=== PATIENT | female | born 1945 | race Caucasian/White ===

== ENCOUNTER → 2016-04-11 | Outpatient (CLI) | payer OTHER, MEDICARE ==
[~2016-04-11] MED LIST: ASPCH81X PO; ASPI-435 PO; ATOR-26 PO; AZIT250T PO; CHOL100027 PO; DULO60CA44 PO; FLNIN/ NAE; HYDR25TA4 PO; HYDR5SYP11 PO; INSDGIPEN SC; INSU100I2 SC; INSU100I2 SQ; INSUINJ4 SC; LEVO75TA5 PO; LOSA25TA18 PO; LPT/40 PO; MDRDP21 PO; MISCCAP80 PO; NRN100 PO; PHEN37.5 PO; VNTHFA/IN INH; VTMB122500 PO
== END | disposition home or self-care (01) ==
LOC: C.LABMFLN 10:20
PROVIDERS: ATTEND Family Medicine
DX: E87.6 Hypokalemia (principal)

== ENCOUNTER → 2016-05-23 | Outpatient (CLI) | payer OTHER, MEDICARE ==
--- NOTE | 2016-05-23 16:06 | MAMMOGRAPHY REPORT ---
BILATERAL DIGITAL SCREENING MAMMOGRAM TOMOSYNTHESIS WITH CAD: 05/23/2016 CLINICAL HISTORY: Routine screening examination. TECHNIQUE: Breast tomosynthesis in addition to standard 2D mammography was performed. Current study was also evaluated with a Computer Aided Detection (CAD) system. COMPARISON: Comparison is made to exams dated: 05/19/2015 mammogram, 06/16/2010 mammogram, 02/17/2014 mammogram, 02/17/2014 stereotactic biopsy - [facility], 01/27/2014 mammogram - [facility], and 06/12/2009 mammogram - [facility]. BREAST COMPOSITION: There are scattered areas of fibroglandular density in both breasts. FINDINGS: There are vascular calcifications and bilateral groupings of coarse heterogeneous microca lcifications, stable in each breast. There is a stable metallic biopsy marker near the biopsied clu ster of calcifications in the 6:00 right breast. No new suspicious mass, architectural distortion o r cluster of microcalcifications is seen. IMPRESSION: ACR BI-RADS CATEGORY 1: NEGATIVE There is no mammographic evidence of malignancy. A 1 year screening mammogram is recommended. The p atient will receive written notification of the results. Approximately 10% of breast cancers are not detected with mammography. A negative mammographic repor t should not delay biopsy if a clinically suggestive mass is present. Jane Ludwig M.D. ay/:05/23/2016 15:42:17 Shuttle Hand: Mariya Hilario RT(R)(Roddy), [facility] letter sent: Normal 1/2 BI-RADS Code: ACR BI-RADS Category 1: Negative
== END | disposition home or self-care (01) ==
LOC: C.MAMM 13:10
PROVIDERS: ATTEND Family Medicine
DX: Z12.31 Encounter for screening mammogram for malignant neoplasm of breast (principal)

== ENCOUNTER → 2016-05-23 | Outpatient (CLI) | payer OTHER, MEDICARE ==
[2016-05-23 13:24] LABS: ALT/SGPT 58 U/L (12-78); AST/SGOT 38 U/L (15-37); BLOOD UREA NITROGEN 19 mg/dl (7-18); BUN/CREATININE RATIO 22.3 (10-20); CALCIUM 8.8 mg/dl (8.5-10.1); CARBON DIOXIDE 30 mmol/L (21-32); CHLORIDE 103 mmol/L (98-107); CHOLESTEROL 128 mg/dl (0-200); CREATININE 0.87 mg/dl (0.60-1.20); GLUCOSE 198 mg/dl (70-99); SODIUM 141 mmol/L (136-145); TRIGLYCERIDES 75 mg/dl (0-150); VERY LOW DENSITY LIPOPROT CALC 15 mg/dl
[2016-05-23 13:34] LABS: ALB/GLOB RATIO 0.9 (0.9-2); ALKALINE PHOSPHATASE 89 U/L (45-117); CHOLESTEROL/HDL RATIO 2.2; HDL CHOLESTEROL 58 mg/dl
[2016-05-23 13:49] LABS: ESTIMATED AVERAGE GLUCOSE 206 mg/dl; HA1C FLAG Normal (Normal)
[2016-05-23 13:58] LABS: RATIO 38.6 mcg/mg (0-30.0)
== END | disposition home or self-care (01) ==
LOC: C.LABMFLN 10:41
PROVIDERS: ATTEND Family Medicine
DX: E87.6 Hypokalemia (principal); E78.5 Hyperlipidemia, unspecified; E03.9 Hypothyroidism, unspecified; E66.9 Obesity, unspecified; E06.3 Autoimmune thyroiditis; I10 Essential (primary) hypertension; R20.8 Other disturbances of skin sensation; F41.8 Other specified anxiety disorders; E11.42 Type 2 diabetes mellitus with diabetic polyneuropathy; E20.0 Idiopathic hypoparathyroidism; Z12.31 Encounter for screening mammogram for malignant neoplasm of breast

== ENCOUNTER 2016-08-23 04:00 | Emergency (ER) | payer OTHER, MEDICARE ==
[~2016-08-23] VITALS: Ht 162.6 cm; Wt 91.3 kg
[~2016-08-23 04:00] MED LIST changes: -ASPI-435 PO; -ATOR-26 PO; -AZIT250T PO; -FLNIN/ NAE; -HYDR5SYP11 PO; -INSDGIPEN SC; -INSU100I2 SQ; -MISCCAP80 PO; -NRN100 PO; -VNTHFA/IN INH
[2016-08-23 04:05] VITALS: TEMP 36.5; Ht 162.6 cm; Wt 91.3 kg
[2016-08-23] MEDS ORDERED: ALBUT/IPRATROP 3MG/0.5MG NEB 3 ML VIAL INH STA (04:18)
[2016-08-23] MEDS ORDERED: FLNIN/ NAE (04:33)
[2016-08-23] MEDS ORDERED: NRN100 PO (04:33)
[2016-08-23] MEDS ORDERED: ATOR-26 PO (04:33)
[2016-08-23] MEDS ORDERED: ASPI-435 PO (04:34)
[2016-08-23] MEDS ORDERED: INSDGIPEN SC (04:35)
[2016-08-23] MEDS ORDERED: MISCCAP80 PO (04:35)
[2016-08-23] MEDS ORDERED: INSU100I2 SQ (04:36)
[2016-08-23] MEDS ORDERED: VNTHFA/IN INH (04:37)
[2016-08-23 04:48] VITALS: O2SAT 94
[2016-08-23 04:50] LABS: BASO % 0.3 %; BASO ABS # 0.03 K/uL (0-0.2); COMPLETE YES; EOS % 1.3 %; HEMATOCRIT 43.2 % (37-47); IG% 0.3 %; LYMPH % 23.9 %; LYMPH ABS # 2.26 K/uL (1.2-3.4); MEAN CELL VOLUME 87.3 fL (80-100); MEAN CORPUSCULAR HEMOGLOBIN 30.3 pg (25-34); MEAN CORPUSCULAR HGB CONC 34.7 g/dl (32-36); MEAN PLATELET VOLUME 10.2 fL (7.4-10.4); MONO % 7.1 %; NEUT % 67.1 %; PLATELET COUNT 326 K/uL (130-400); RED BLOOD COUNT 4.95 M/uL (4.2-5.4); WHITE BLOOD COUNT 9.47 K/uL (4.8-10.8)
[2016-08-23 04:58] LABS: POINT OF CARE PRO-BNP 24 pg/ml (0-900); POINT OF CARE TROPONIN I < 0.030 ng/ml (0-0.045)
[2016-08-23 05:09] LABS: ALT/SGPT 39 U/L (12-78); AST/SGOT 19 U/L (15-37); BLOOD UREA NITROGEN 20 mg/dl (7-18); CARBON DIOXIDE 30 mmol/L (21-32); CHLORIDE 101 mmol/L (98-107); CREATININE 0.78 mg/dl (0.60-1.20); GLUCOSE 239 mg/dl (70-99); POTASSIUM 3.6 mmol/L (3.5-5.1); SODIUM 138 mmol/L (136-145)
[2016-08-23 05:14] LABS: ALKALINE PHOSPHATASE 99 U/L (45-117)
[2016-08-23] MEDS ORDERED: AZITHROMYCIN 250 MG TAB PO STA (05:56)
--- NOTE | 2016-08-23 05:58 | EMERGENCY ROOM VISIT NOTE ---
History First contact with patient: 04:08 Chief Complaint: CONGESTION Stated Complaint: CHEST CONGESTION,COUGHING/CHOKING History of Present Illness The patient is a 71 year old female who presents to the Emergency Room with complaints of cough, congestion, chest pain with coughing, subjective fever and chills for the past week that is steadily getting worse. Patient went to urgent care was placed on a Medrol Dosepak. No x-ray was done. Patient states visualize down the coughing is worse and harder to breathe. No history of congestive heart failure. No prior heart disease. Patient denies prolonged chest pain, abdominal pain, headache, neck stiffness, earache, leg pain or swelling, vomiting, diarrhea. She is tolerated by mouth fluids and food. Review of Systems See HPI for pertinent positives & negatives. A total of 10 systems reviewed and were otherwise negative. Past Medical/Surgical History Diabetes, hyperlipidemia, vitamin D deficiency, hypertension, hypertensive, hysterectomy, kidney stones, tonsillectomy Social History Smoking Status: Never Smoker Smokeless Tobacco Use: No Alcohol Use: none Drug Use: none Marital Status: Housing Status: lives with family Current/Historical Medications Scheduled Aspirin (Aspirin 81), 81 MG PO DAILY Atorvastatin (Lipitor), 80 MG PO DAILY Cholecalciferol (Vitamin D 1000 Unit), 1,000 INTER.UNIT PO QAM Cyanocobalamin (Vitamin B-12), 2,500 MCG PO QAM Duloxetine Hcl (Cymbalta), 60 MG PO BID Gabapentin (Gabapentin), 100 MG PO TID Hydrochlorothiazide (Hctz), 25 MG PO QAM Insulin Glargine (Lantus Solostar), 70 UNITS SC QPM Insulin Lispro (Human) (Humalog Kwikpen), SQ AC Levothyroxine Sodium (Levothyroxine Sodium), 75 MCG PO QPM Losartan Potassium (Cozaar), 25 MG PO QAM Methylprednisolone (Methylprednisolone Dose P), PO UD Probiotic Product (Probiotic), 1 CAP PO AMPM Scheduled PRN Albuterol Hfa (Ventolin Hfa), 2 PUFFS INH Q4 PRN for Wheezing Fluticasone Propionate (Fluticasone Propionate), 2 SPRAYS KATRINA DAILY PRN for ALLERGIES Allergies Coded Allergies: Lisinopril (Verified Allergy, Unknown, COUGHING, 08/23/16) Metformin (Verified Allergy, Unknown, DIARRHEA, 08/23/16) Venlafaxine (Verified Allergy, Unknown, UNKNOWN, 08/23/16) Physical Exam Vital Signs Date Time Temp Pulse Resp B/P (MAP) Pulse Ox O2 Delivery O2 Flow Rate FiO2 08/23/16 05:14 61 20 143/84 95 Nasal Cannula 2.0 08/23/16 05:00 89 Room Air 08/23/16 04:48 94 Room Air 08/23/16 04:05 36.5 71 20 148/90 94 Physical Exam VITALS: Vitals are noted on the nurse's note and reviewed by myself. Vital signs mildly hypertensive GENERAL: Pleasant elderly female, in no acute distress, nondiaphoretic, well- developed well-nourished. SKIN: The skin was without rashes, erythema, edema, or bruising. There is no tenting of the skin. Capillary reflex less than 2 seconds. HEAD: Normocephalic atraumatic. EARS: External auditory canals clear, tympanic membranes pearly soto without erythema or effusion bilaterally. EYES: Pupils equal round and reactive to light and accommodation. Conjunctivae without injection, sclerae without icterus. Extraocular movements intact. NOSE: Patent, turbinates without inflammation or discharge. MOUTH: Mucous membranes moist. Pharynx without erythema or exudate. Uvula midline. Airway patent. Tongue does not deviate. NECK: Supple without nuchal rigidity. No lymphadenopathy. No thyromegaly. Cervical spine is nontender. No JVD. No meningeal signs HEART: Regular rate and rhythm LUNGS: Mild diffuse end expiratory wheezes, without rales or rhonchi. No dullness to percussion. No retractions or accessory muscle use. ABDOMEN: Positive bowel sounds x 4. Normal tympanic percussion. Soft, nontender, without masses or organomegaly. Vilchis sign negative. No guarding or rebound tenderness. MUSCULOSKELETAL: No muscle atrophy, erythema, or edema noted. NEURO: Patient was alert and oriented to person place and time. Normal sensation to light and sharp touch. No focal neurological deficits. Medical Decision & Procedures Laboratory Results 08/23/16 04:33 Red Blood Count 4.95, Mean Corpuscular Volume 87.3, Mean Corpuscular Hemoglobin 30.3, Mean Corpuscular Hemoglobin Concent 34.7, Mean Platelet Volume 10.2, Neutrophils (%) (Auto) 67.1, Lymphocytes (%) (Auto) 23.9, Monocytes (%) (Auto) 7.1, Eosinophils (%) (Auto) 1.3, Basophils (%) (Auto) 0.3, Neutrophils # (Auto) 6.36, Lymphocytes # (Auto) 2.26, Monocytes # (Auto) 0.67, Eosinophils # (Auto) 0.12, Basophils # (Auto) 0.03 08/23/16 04:33 Test 08/23/16 04:33 08/23/16 04:38 08/23/16 04:50 White Blood Count 9.47 K/uL (4.8-10.8) Red Blood Count 4.95 M/uL (4.2-5.4) Hemoglobin 15.0 g/dL (12.0-16.0) Hematocrit 43.2 % (37-47) Mean Corpuscular Volume 87.3 fL (80-100) Mean Corpuscular Hemoglobin 30.3 pg (25-34) Mean Corpuscular Hemoglobin Concent 34.7 g/dl (32-36) Platelet Count 326 K/uL (130-400) Mean Platelet Volume 10.2 fL (7.4-10.4) Neutrophils (%) (Auto) 67.1 % Lymphocytes (%) (Auto) 23.9 % Monocytes (%) (Auto) 7.1 % Eosinophils (%) (Auto) 1.3 % Basophils (%) (Auto) 0.3 % Neutrophils # (Auto) 6.36 K/uL (1.4-6.5) Lymphocytes # (Auto) 2.26 K/uL (1.2-3.4) Monocytes # (Auto) 0.67 K/uL (0.11-0.59) Eosinophils # (Auto) 0.12 K/uL (0-0.5) Basophils # (Auto) 0.03 K/uL (0-0.2) RDW Standard Deviation 40.4 fL (36.4-46.3) RDW Coefficient of Variation 12.6 % (11.5-14.5) Immature Granulocyte % (Auto) 0.3 % Immature Granulocyte # (Auto) 0.03 K/uL (0.00-0.02) D-Dimer 220 ug/L FEU (0-500) Anion Gap 7.0 mmol/L (3-11) Est Creatinine Clear Calc Drug Dose 71.4 ml/min Estimated GFR () 88.0 Estimated GFR (Non- 76.0 BUN/Creatinine Ratio 25.0 (10-20) Total Bilirubin 0.9 mg/dl (0.2-1) Aspartate Amino Transf (AST/SGOT) 19 U/L (15-37) Alanine Aminotransferase (ALT/SGPT) 39 U/L (12-78) Alkaline Phosphatase 99 U/L (45-117) Troponin I < 0.015 ng/ml (0-0.045) Total Protein 7.5 gm/dl (6.4-8.2) Albumin 3.8 gm/dl (3.4-5.0) Globulin 3.7 gm/dl (2.5-4.0) Albumin/Globulin Ratio 1.0 (0.9-2) Bedside Troponin I < 0.030 ng/ml (0-0.045) HW-Biy-A-Type Natriuretic Peptide 24 pg/ml (0-900) Bedside Lactic Acid Venous 1.37 mmol/L (0.90-1.70) Medications Administered Medications (Trade) Dose Ordered Sig/Ryan Route Start Time Stop Time Status Last Admin Dose Admin Albuterol/ Ipratropium (Duoneb) 3 ml NOW STAT INH 08/23/16 04:18 08/23/16 04:20 DC 08/23/16 04:52 3 ML ED Course Prior records/ancillary studies reviewed. Triage Nursing notes reviewed. Additional history obtained from the family. The patient's history was concerning for respiratory difficulties. Differential diagnosis: Etiologies such as infections, reactive airway disease, pneumonia, pneumothorax , COPD, CHF, cardiac ischemia, pulmonary embolism, musculoskeletal, gastrointestinal, as well as others were entertained. Physical examination: As above. ER treatment provided: Nebulizer On reassessment the patient felt better. Diagnostic interpretation by me: The electrocardiogram was normal sinus, normal intervals, left axis deviation, no acute ST-T wave changes. Impression normal sinus rhythm interpreted by myself The labs revealed a negative troponin. Negative BNP. No leukocytosis. Negative d-dimer Imaging studies: Chest x-ray with no acute consolidation, pneumothorax or free air per my interpretation . This appears to be consistent with bronchitis with wheezing. Patient was neurovascularly and neurologically intact. She is well-appearing. She was tolerating fluids. Stable vital signs. Patient did desat shortly after nebulizer but came back to normal pulse ox. By the evaluation outlined above emergent etiologies such as CHF, cardiac ischemia, pulmonary embolism, reactive airway disease, pneumonia, pneumothorax, musculoskeletal, serious bacterial infections, as well as others were deemed relatively unlikely. The pt informed about the findings as listed above. All questions were answered and pleased with the treatment. Return instructions were outlined and the patient was discharged in stable condition. Outpatient prescription management: Zithromax Referral: The patient was referred back to their primary care physician for follow-up in 2 to 3 days for a recheck of the current condition. Case reviewed with my attending. Medical Decision As above Patient was found to have elevated blood pressure and was referred to their family doctor for recheck and further treatment. I attest that I have personally reviewed the patient's medications. Impression Primary Impression: Acute bronchitis Departure Information Dispostion Home / Self-Care Condition GOOD Referrals Kenan Sinclair M.D. (PCP) Patient Instructions My [facility] Additional Instructions DO NOT drive, drink alcohol, operate machinery, or perform dangerous activities today. You were given medications in the ER that can affect your ability to safely function or operate a vehicle. Azithromycin(Zithromax) 250mg: Take one a day for 4 additional days. All antibiotics can cause diarrhea. If this occurs and you feel worse or it does not resolve in 1-2 days follow up with your doctor or return to the Emergency Department as this could be signs of serious underlying problems. Any medication can cause an allergic reaction, stop the pills immediately and return to the ER for rash, hives, breathing difficulties, or swelling. Albuterol Inhaler: Take 2 puffs four times daily for seven days, then as needed. Acetaminophen(Tylenol) may be used for fever or pain. Use 1000mg every six hours as needed. Avoid using more than 3000mg in a 24 hour period. AND/OR Ibuprofen(Motrin, Advil) may be used for fever or pain. Use 600mg every six hours as needed. Take with food. Avoid using more than 2400mg in a 24 hour period. Do not use 2400mg per day for more than three consecutive days without physician direction. Prolonged inappropriate use can lead to stomach upset or ulcers. Hycodan cough syrup: use one teaspoon every six hours only as needed for severe cough. It is best for use at night since it will cause sedation. This is a narcotic medication. Avoid alcohol, operating machinery or dangerous equipment, working on ladders or roofs, DRIVING, or situations where being under the influence may be dangerous. It is recommended to use an over-the- counter stool softener such as Colace, 100mg twice daily while taking this medication to avoid constipation. Controlling your fever with Tylenol and Ibuprofen as above will make you feel better. Rest and drink plenty of fluids. Avoid strenuous activity until your symptoms resolve and your breathing returns to normal. Continue current medications. Return to the ER for chest pain, difficulty breathing, persistent fevers, vomiting, worsening of your condition, or as needed. Follow-up with family care in 2-3 days. Problem Qualifiers Primary Impression: Acute bronchitis Bronchitis organism: unspecified organism Qualified Codes: J20.9 - Acute bronchitis, unspecified
[2016-08-23] MEDS ORDERED: HYDR5SYP11 PO (05:59)
[2016-08-23] MEDS ORDERED: AZIT250T PO (05:59)
[2016-08-23] MEDS ORDERED: HYCODAN 60ML BOTTLE HOMEPACK PO ONE (06:00)
--- NOTE | 2016-08-23 06:02 | EMERGENCY ROOM VISIT NOTE ---
ED Visit Note First contact with patient: 04:08 I have personally evaluated and examined this patient. I agree with assessment and plan of Yanelis Reeves PA-C.
[2016-08-23 06:15] VITALS: BP 143/84; PULSE 61; O2SAT 95
--- NOTE | 2016-08-23 07:46 | DIAGNOSTIC IMAGING REPORT ---
TWO VIEW CHEST CLINICAL HISTORY: Cough. FINDINGS: PA and lateral chest radiographs are obtained. No prior studies are available for comparison at the time of dictation. The heart is mildly enlarged and there is atherosclerotic calcification of the thoracic aorta. The pulmonary vasculature is noncongested. Nonspecific interstitial thickening is noted. There is no airspace consolidation or large pleural effusion. Minimal dependent atelectasis is observed. There is no pneumothorax. The skeletal structures are osteopenic. The bony thorax appears intact. IMPRESSION: Mild cardiac enlargement with no active disease in the chest. Electronically signed by: Kenan Gonzalez M.D. 08/23/2016 7:44 AM Dictated Date/Time: 08/23/2016 7:44 AM
[2016-08-23 12:04] LABS: CALCIUM 9.2 mg/dl (8.5-10.1)
== END 2016-08-23 06:15 | disposition home or self-care (01) ==
LOC: C.EDB 04:02
DX: J20.9 Acute bronchitis, unspecified (principal); E11.9 Type 2 diabetes mellitus without complications; E78.5 Hyperlipidemia, unspecified; I10 Essential (primary) hypertension; E55.9 Vitamin D deficiency, unspecified; Z90.710 Acquired absence of both cervix and uterus; Z87.442 Personal history of urinary calculi; Z98.890 Other specified postprocedural states; Z79.82 Long term (current) use of aspirin; Z79.4 Long term (current) use of insulin; Z79.899 Other long term (current) drug therapy; Z88.8 Allergy status to other drugs, medicaments and biological substances

== ENCOUNTER → 2016-09-06 | Outpatient (CLI) | payer OTHER, MEDICARE ==
[~2016-09-06] MED LIST changes: -ASPCH81X PO; +ASPI-435 PO; +ATOR-26 PO; +AZIT250T PO; +FLNIN/ NAE; +INSDGIPEN SC; -INSU100I2 SC; +INSU100I2 SQ; -INSUINJ4 SC; -LPT/40 PO; +MISCCAP80 PO; +NRN100 PO; -PHEN37.5 PO; +VNTHFA/IN INH
== END | disposition home or self-care (01) ==
LOC: C.LABMFLN 09:04
PROVIDERS: ATTEND Family Medicine
DX: R05 Cough (principal)

== ENCOUNTER → 2016-09-13 | Outpatient (CLI) | payer OTHER, MEDICARE | END | disposition home or self-care (01) | LOC: C.LABMFLN 11:12 | PROVIDERS: ATTEND Family Medicine | DX: R06.00 Dyspnea, unspecified (principal); R05 Cough ==

== ENCOUNTER → 2016-09-22 | Outpatient (CLI) | payer OTHER, MEDICARE ==
[2016-09-22 18:21] LABS: THYROID STIMULATING HORMONE 1.48 uIu/ml (0.300-4.500)
[2016-09-26 13:51] LABS: ASPERGILLUS FLAVUS Negative (Negative); ASPERGILLUS FUMIGATUS Negative (Negative); ASPERGILLUS NIGER Negative (Negative)
[2016-09-26 21:22] LABS: BORDETELLA PERTUSSIS PT IGA 32 IU/mL
== END | disposition home or self-care (01) ==
LOC: C.LABMFLN 14:02
PROVIDERS: ATTEND Physician Assistant
DX: E07.9 Disorder of thyroid, unspecified (principal)

== ENCOUNTER → 2016-09-30 | Outpatient (CLI) | payer OTHER, MEDICARE ==
[~2016-09-30] MED LIST changes: +OPTIRAY 320 IV PRN
--- NOTE | 2016-09-30 09:06 | DIAGNOSTIC IMAGING REPORT ---
CT SCAN OF THE NECK WITH IV CONTRAST CLINICAL HISTORY: Thyroid disorder. Difficulty swallowing. COMPARISON STUDY: Thyroid ultrasound dated 06/15/2012. TECHNIQUE: Following the IV administration of 93 cc of Optiray 320, CT scan of the soft tissues of the neck was performed from the skull base to the upper chest. Images are reviewed in the axial, sagittal, and coronal planes. IV contrast was administered without complication. A dose lowering technique was utilized adhering to the principles of ALARA. CT DOSE: 414.11 mGycm FINDINGS: Pharynx: The nasopharynx, oropharynx, and laryngeal pharynx are normal in appearance. The pharyngeal airway is widely patent. There is no evidence of mass lesion. The vocal cords are symmetric. The parapharyngeal fat is well maintained. The prevertebral/retropharyngeal soft tissues are within normal limits. Lymphadenopathy: No cervical lymphadenopathy is seen Thyroid: Normal in size and attenuation. Salivary glands: The parotid and submandibular glands are within normal limits. Brain parenchyma: The visualized brain parenchyma at the skull base is normal in appearance. Vascular structures: There is mild atherosclerotic calcification of the visualized thoracic aorta. The arch demonstrates bovine variant anatomy. The carotid arteries and jugular veins are widely patent. Skeletal structures: The skeletal structures are osteopenic. Imaged portions of the calvarium at the skull base and the cervical spine appear intact. Mild multilevel cervical spondylosis is observed. No lytic or blastic lesions are seen. Sinuses and mastoids: The visualized paranasal sinuses are clear. There is evidence of previous right mastoid surgery. The left mastoid air cells are well pneumatized. Orbits: The partially visualized orbits are grossly unremarkable. Orbital contents are normal as imaged noting bilateral ocular lens implants. Lung apices: Visualized apical lung parenchyma is clear. IMPRESSION: 1. No abnormality is identified in the neck. 2. There is no mass, fluid collection, or cervical lymphadenopathy. Electronically signed by: Kenan Gonzalez M.D. 09/30/2016 9:05 AM Dictated Date/Time: 09/30/2016 9:00 AM
== END | disposition home or self-care (01) ==
LOC: C.CTS 08:40
PROVIDERS: ATTEND Physician Assistant
DX: E07.9 Disorder of thyroid, unspecified (principal)

== ENCOUNTER → 2016-12-21 | Outpatient (CLI) | payer OTHER, MEDICARE ==
[~2016-12-21] MED LIST changes: -OPTIRAY 320 IV PRN
== END | disposition home or self-care (01) ==
LOC: C.LABMFLN 12:01
PROVIDERS: ATTEND Family Medicine
DX: R30.0 Dysuria (principal)

== ENCOUNTER → 2017-01-06 | Outpatient (CLI) | payer OTHER, MEDICARE ==
[2017-01-06 13:21] LABS: ESTIMATED AVERAGE GLUCOSE 203 mg/dl; HA1C FLAG Normal (Normal)
[2017-01-06 13:37] LABS: ALT/SGPT 56 U/L (12-78); BLOOD UREA NITROGEN 17 mg/dl (7-18); BUN/CREATININE RATIO 22.6 (10-20); CALCIUM 8.8 mg/dl (8.5-10.1); CARBON DIOXIDE 30 mmol/L (21-32); CHLORIDE 107 mmol/L (98-107); CHOLESTEROL 151 mg/dl (0-200); CREATININE 0.75 mg/dl (0.60-1.20); GLUCOSE 152 mg/dl (70-99); POTASSIUM 3.9 mmol/L (3.5-5.1); SODIUM 141 mmol/L (136-145)
[2017-01-06 13:48] LABS: ALKALINE PHOSPHATASE 99 U/L (45-117); AST/SGOT 41 U/L (15-37); CHOLESTEROL/HDL RATIO 2.2; HDL CHOLESTEROL 69 mg/dl; LDL CHOLESTEROL CALCULATED 68 mg/dl; THYROID STIMULATING HORMONE 0.876 uIu/ml (0.300-4.500); TRIGLYCERIDES 70 mg/dl (0-150); VERY LOW DENSITY LIPOPROT CALC 14 mg/dl
== END | disposition home or self-care (01) ==
LOC: C.LABMFLN 08:20
PROVIDERS: ATTEND Family Medicine
DX: E03.9 Hypothyroidism, unspecified (principal); E55.9 Vitamin D deficiency, unspecified; E11.9 Type 2 diabetes mellitus without complications; E78.00 Pure hypercholesterolemia, unspecified

== ENCOUNTER → 2017-02-06 | Outpatient (CLI) | payer OTHER, MEDICARE ==
[2017-02-06 12:58] LABS: BASO ABS # 0.05 K/uL (0-0.2); COMPLETE YES; EOS % 3.8 %; HEMATOCRIT 40.8 % (37-47); IG% 0.2 %; LYMPH % 29.2 %; MEAN CELL VOLUME 90.1 fL (80-100); MEAN CORPUSCULAR HEMOGLOBIN 30.7 pg (25-34); MEAN CORPUSCULAR HGB CONC 34.1 g/dl (32-36); MEAN PLATELET VOLUME 10.6 fL (7.4-10.4); MONO % 7.9 %; NEUT % 57.9 %; PLATELET COUNT 280 K/uL (130-400); RED BLOOD COUNT 4.53 M/uL (4.2-5.4); WHITE BLOOD COUNT 4.79 K/uL (4.8-10.8)
[2017-02-06 13:03] LABS: URINE APPEARANCE CLEAR (CLEAR); URINE BILIRUBIN NEG (NEG); URINE COLOR YELLOW; URINE EPITHELIAL CELL AUTO 20-30 /lpf (0-5); URINE NITRITE POS (NEG); URINE PH 6.5 (4.5-7.5); URINE SPECIFIC GRAVITY 1.016 (1.000-1.030); UROBILINOGEN NEG (NEG)
[2017-02-06 13:09] LABS: MANUAL MICROSCOPIC REQUIRED? NO; REVIEW REQ? NO
[2017-02-06 13:36] LABS: ALT/SGPT 85 U/L (12-78); AMYLASE 26 U/L (25-115); AST/SGOT 51 U/L (15-37); BLOOD UREA NITROGEN 16 mg/dl (7-18); BUN/CREATININE RATIO 20.8 (10-20); CALCIUM 8.7 mg/dl (8.5-10.1); CARBON DIOXIDE 26 mmol/L (21-32); CHLORIDE 103 mmol/L (98-107); CREATININE 0.77 mg/dl (0.60-1.20); GLUCOSE 269 mg/dl (70-99); SODIUM 135 mmol/L (136-145)
[2017-02-06 13:38] LABS: ALKALINE PHOSPHATASE 90 U/L (45-117)
== END | disposition home or self-care (01) ==
LOC: C.LABMFLN 09:51
PROVIDERS: ATTEND Family Medicine
DX: R10.2 Pelvic and perineal pain (principal); R10.814 Left lower quadrant abdominal tenderness

== ENCOUNTER → 2017-02-10 | Outpatient (CLI) | payer OTHER, MEDICARE | END | disposition home or self-care (01) | LOC: C.LAB1850 16:29 | PROVIDERS: ATTEND Internal Medicine Endocrinology, Diabetes & Metabolism | DX: E06.3 Autoimmune thyroiditis (principal) ==

== ENCOUNTER → 2017-02-17 | Outpatient (CLI) | payer OTHER, MEDICARE | END | disposition home or self-care (01) | LOC: C.LABMFLN 16:36 | PROVIDERS: ATTEND Family Medicine | DX: R19.7 Diarrhea, unspecified (principal) ==

== ENCOUNTER → 2017-04-18 | Outpatient (CLI) | payer OTHER, MEDICARE ==
[~2017-04-18] MED LIST changes: -AZIT250T PO
== END | disposition home or self-care (01) ==
LOC: C.LABMFLN 18:23
PROVIDERS: ATTEND Family Medicine
DX: R10.2 Pelvic and perineal pain (principal)

== ENCOUNTER → 2017-05-11 | Outpatient (CLI) | payer OTHER, MEDICARE ==
[2017-05-11 12:59] LABS: HEMOGLOBIN A1C 7.8 % (4.5-5.6)
[2017-05-11 13:17] LABS: ALBUMIN 3.5 gm/dl (3.4-5.0); ALT/SGPT 38 U/L (12-78); AST/SGOT 28 U/L (15-37); BLOOD UREA NITROGEN 22 mg/dl (7-18); CALCIUM 8.4 mg/dl (8.5-10.1); CARBON DIOXIDE 24 mmol/L (21-32); CREATININE 0.78 mg/dl (0.60-1.20); GLUCOSE 82 mg/dl (70-99); POTASSIUM 3.9 mmol/L (3.5-5.1); SODIUM 141 mmol/L (136-145)
[2017-05-11 13:29] LABS: ALKALINE PHOSPHATASE 81 U/L (45-117); CHOLESTEROL 138 mg/dl (0-200); LDL CHOLESTEROL CALCULATED 61 mg/dl; TOTAL PROTEIN 7.1 gm/dl (6.4-8.2)
== END | disposition home or self-care (01) ==
LOC: C.LABMFLN 07:07
PROVIDERS: ATTEND Family Medicine
DX: E78.5 Hyperlipidemia, unspecified (principal); E03.9 Hypothyroidism, unspecified; E55.9 Vitamin D deficiency, unspecified; E11.9 Type 2 diabetes mellitus without complications